=== PATIENT | male | born 1995 | race African-American/Black ===

== ENCOUNTER 2016-07-28 20:30 | Emergency (ER) | payer BC ==
[~2016-07-28] VITALS: Ht 170.2 cm; Wt 61.1 kg
[2016-07-28 21:00] LABS: HEMATOCRIT 42.4 % (38.0-50.0); MCH 25.8 PG (29.0-34.0); MCHC 34.2 G/DL (30.0-36.0); MCV 75.6 FL (86-99); PLATELET COUNT 222 K/uL (156-360); RBC DIS.WIDTH-SD 38.2 % (39-53); RED BLOOD COUNT 5.61 M/uL (4.00-5.50); WHITE BLOOD COUNT 9.4 K/uL (4.1-10.2)
[2016-07-28 21:06] LABS: CHLORIDE 101 mEq/L (99-109); SODIUM 138 mEq/L (136-147)
[2016-07-28 21:08] LABS: GLUCOSE 114 mg/dL (70-99)
[2016-07-28 21:10] LABS: ANION GAP 9 MEQ/L (2-14); TOTAL BILIRUBIN 2.9 mg/dL (0.0-1.0)
[2016-07-28 21:12] LABS: ALKALINE PHOSPHATASE 77 IU/L (3-129); GFR ESTIMATE (CALCULATED) > 59 mL/min/
[2016-07-28 21:13] LABS: UREA NITROGEN (BUN) 8 mg/dL (9-23)
[2016-07-28 21:13] LABS: ADD MIUA? NO; BILIRUBIN NEGATIVE; BLOOD NEGATIVE; COLOR YELLOW ((YELLOW)); GLUCOSE (STRIP) NEGATIVE; KETONES NEGATIVE; LEUKOCYTES NEGATIVE; NITRITE NEGATIVE; PROTEIN (STRIP) TRACE; SPECIFIC GRAVITY 1.022 (1.000-1.030); UCUL ADDED? NO
[2016-07-28] MEDS ORDERED: ZOFRAN ODT4 MG PO (21:57)
[2016-07-28 22:14] VITALS: BP 126/80
== END 2016-07-28 22:15 | disposition home or self-care (01) ==
LOC: RME 20:30 → EME 20:30 → RME 22:15
DX: R10.33 Periumbilical pain (principal); R11.2 Nausea with vomiting, unspecified
CPT/HCPCS: 74000; 80053; 81003; 85027; 99281; 99284

== ENCOUNTER 2017-12-28 15:27 | Inpatient (IN) | payer BC ==
[~2017-12-28] VITALS: Ht 172.7 cm; Wt 58.1 kg
[~2017-12-28 15:27] MED LIST: ZOFRAN ODT4 MG PO
[2017-12-28 15:59] LABS: HEMOGLOBIN 14.8 G/DL (12.5-16.6); MCH 26.7 PG (29.0-34.0); MCHC 34.4 G/DL (30.0-36.0); MCV 77.5 FL (86-99); PLATELET COUNT 208 K/uL (156-360); RBC DIS.WIDTH-CV 12.7 % (11.8-14.6); RBC DIS.WIDTH-SD 36.1 % (39-53); RED BLOOD COUNT 5.55 M/uL (4.00-5.50); WHITE BLOOD COUNT 8.1 K/uL (4.1-10.2)
[2017-12-28 16:09] LABS: ALBUMIN 4.4 g/dL (3.2-4.8); CHLORIDE 99 mEq/L (99-109); POTASSIUM 3.2 mEq/L (3.7-5.4); SODIUM 137 mEq/L (136-147)
[2017-12-28 16:12] LABS: GLUCOSE 102 mg/dL (70-99); TOTAL PROTEIN 7.2 g/dL (6.4-8.3)
[2017-12-28 16:14] LABS: TOTAL BILIRUBIN 3.2 mg/dL (0.0-1.0)
[2017-12-28 16:15] LABS: ALKALINE PHOSPHATASE 54 IU/L (3-129); CREATININE 1.2 mg/dL (0.6-1.3); GFR ESTIMATE (CALCULATED) > 59 mL/min/ (58.99-99999)
[2017-12-28 16:16] LABS: UREA NITROGEN (BUN) 10 mg/dL (9-23)
[2017-12-28 16:17] LABS: AST (GOT) 15 IU/L (2-34)
[2017-12-28 16:18] LABS: ALT (GPT) 20 IU/L (3-49)
[2017-12-28 16:19] LABS: LIPASE 295 U/L (1.0-51.0)
[2017-12-28 17:17] LABS: APPEARANCE CLEAR ((CLEAR)); BILIRUBIN NEGATIVE; BLOOD NEGATIVE; COLOR YELLOW ((YELLOW)); GLUCOSE (STRIP) NEGATIVE; KETONES 20; LEUKOCYTES NEGATIVE; NITRITE NEGATIVE; PROTEIN (STRIP) NEGATIVE; SPECIFIC GRAVITY 1.034 (1.000-1.030); UCUL ADDED? NO
[2017-12-28 19:48] LABS: DIRECT BILIRUBIN 0.5 mg/dL (0.0-0.3)
[2017-12-28 19:54] LABS: TRIGLYCERIDES 84 MG/DL (Normal: <150)
[2017-12-28 20:15] LABS: C-REACTIVE PROTEIN < 1.0 MG/L (0-10)
[2017-12-28 20:29] VITALS: BP 116/56
[2017-12-29 00:40] VITALS: BP 121/58
[2017-12-29 05:39] LABS: BASOPHIL (%) 0.4 % (0-1); EOSINOPHIL (%) 0.8 % (0-5); EOSINOPHIL COUNT 0.1 K/uL (0-0.3); HEMATOCRIT 37.7 % (38.0-50.0); IMMATURE GRANULOCYTE (%) 0.4 % (0.0-0.7); LYMPHOCYTE (%) 35.4 % (15-42); LYMPHOCYTE COUNT 2.7 K/uL (1.0-2.8); MCH 25.9 PG (29.0-34.0); MCHC 33.2 G/DL (30.0-36.0); MCV 78.1 FL (86-99); MONOCYTE (%) 7.4 % (3-12); MONOCYTE COUNT 0.6 K/uL (0-0.8); NEUTROPHIL (%) 55.6 % (45-76); NEUTROPHIL COUNT 4.3 K/uL (1.8-6.4); PLATELET COUNT 182 K/uL (156-360); RBC DIS.WIDTH-CV 12.8 % (11.8-14.6); RBC DIS.WIDTH-SD 36.4 % (39-53); RED BLOOD COUNT 4.83 M/uL (4.00-5.50); WHITE BLOOD COUNT 7.7 K/uL (4.1-10.2)
[2017-12-29 05:58] LABS: HEMOGLOBIN 12.5 G/DL (12.5-16.6)
[2017-12-29 06:00] LABS: ALBUMIN 3.6 G/DL (3.2-4.8); ALKALINE PHOSPHATASE 35 IU/L (3-129); ALT (GPT) 14 IU/L (3-49); AST (GOT) 11 IU/L (2-34); CHLORIDE 102 MEQ/L (99-109); GFR ESTIMATE (CALCULATED) > 59 mL/min/ (58.99-99999); GLUCOSE 85 mg/dL (70-99); POTASSIUM 3.6 MEQ/L (3.7-5.4); SODIUM 139 MEQ/L (136-147); TOTAL BILIRUBIN 2.8 MG/DL (0.0-1.0); TOTAL PROTEIN 5.7 G/DL (6.4-8.3); UREA NITROGEN (BUN) 10 mg/dL (9-23)
[2017-12-29 07:23] VITALS: BP 117/74
[2017-12-29 15:05] VITALS: BP 151/67
[2017-12-29 23:54] VITALS: BP 119/78
[2017-12-30 06:37] LABS: ALBUMIN 4.2 G/DL (3.2-4.8); ALKALINE PHOSPHATASE 47 IU/L (3-129); ALT (GPT) 14 IU/L (3-49); AMYLASE 51 IU/L (1-118); AST (GOT) 10 IU/L (2-34); DIRECT BILIRUBIN 0.4 mg/dL (0.0-0.3); LACTATE DEHYDROGENASE 117 IU/L (20-246); LIPASE 23 U/L (1.0-51.0); TOTAL BILIRUBIN 2.8 MG/DL (0.0-1.0); TOTAL PROTEIN 6.5 G/DL (6.4-8.3)
[2017-12-30 07:36] VITALS: BP 101/59
== END 2017-12-30 15:59 | disposition home or self-care (01) | DRG 439 ==
LOC: EME 15:27 → ENRESERV 18:31 → EDOF 18:40 → 5SOUTH 18:40 → ENRESERV 19:37 → 5SOUTH 20:06
PROVIDERS: Hospitalist; Internal Medicine Gastroenterology; Physician Assistant
DX: K85.20 Alcohol induced acute pancreatitis without necrosis or infection (principal); K52.9 Noninfective gastroenteritis and colitis, unspecified; E86.0 Dehydration; E80.4 Gilbert syndrome; R17 Unspecified jaundice; E80.6 Other disorders of bilirubin metabolism; F12.90 Cannabis use, unspecified, uncomplicated; E87.6 Hypokalemia; R19.7 Diarrhea, unspecified; K85.90 Acute pancreatitis without necrosis or infection, unspecified; Z87.891 Personal history of nicotine dependence; Z68.1 Body mass index [BMI] 19.9 or less, adult; K27.9 Peptic ulcer, site unspecified, unspecified as acute or chronic, without hemorrhage or perforation
CPT/HCPCS: 74177; 80053; 80076; 81003; 82150; 82248; 83010 90; 83615; 83690; 84478; 85025; 85027; 86140; 99281; 99285; J1650; J2405; J3010; J7030; J7120; S0028